=== PATIENT | female | born 1950 | race Caucasian/White ===

== ENCOUNTER 2016-11-01 10:01 | Outpatient (CLI) | payer MEDICARE, OTHER | END 2016-11-01 10:02 | disposition home or self-care (01) | DX: G47.33 Obstructive sleep apnea (adult) (pediatric) (principal) | CPT/HCPCS: 99213; G0463 ==

== ENCOUNTER 2016-11-29 09:28 | Outpatient (CLI) | payer MEDICARE, OTHER | END 2016-11-29 09:29 | disposition home or self-care (01) | DX: G47.33 Obstructive sleep apnea (adult) (pediatric) (principal) | CPT/HCPCS: 99213; G0463 ==

== ENCOUNTER 2017-03-07 09:30 | Outpatient (CLI) | payer MEDICARE, OTHER | END 2017-03-07 09:31 | disposition home or self-care (01) | LOC: SC 09:30 | PROVIDERS: ATTEND Internal Medicine Pulmonary Disease | DX: Z53.9 Procedure and treatment not carried out, unspecified reason (principal) ==

== ENCOUNTER 2017-12-23 10:34 | Outpatient (CLI) | payer MEDICARE, OTHER ==
--- NOTE | 2017-12-23 13:53 | XRAY Report ---
RIGHT KNEE: 12/23/2017 HISTORY: Pain. COMPARISON: No comparisons. FINDINGS: There is advanced patellofemoral degenerative change with joint space narrowing and spurring. Lateral tilting and subluxation of the patella. Equivocal suprapatellar effusion. Mild medial and lateral knee joint space narrowing and spurring. No fracture. IMPRESSION: MODERATELY SEVERE RIGHT KNEE DEGENERATIVE CHANGE, MOST MARKED PATELLOFEMORAL ARTICULATION. TD: 12/23/2017 13:53 [facility]
== END 2017-12-23 10:35 | disposition home or self-care (01) ==
LOC: DI.N 10:34
PROVIDERS: ATTEND Internal Medicine
DX: M17.11 Unilateral primary osteoarthritis, right knee (principal)

== ENCOUNTER 2021-06-04 08:46 | Day surgery (SDC) | payer MEDICARE, OTHER ==
[~2021-06-04 08:46] MED LIST: BRIMONIDINE 0.2% OPHTH DROPS 5 ML ONE; BSS/LIDOCAINE/EPINEPHRINE 1 ML SYRINGE ONE; CYCLOPENTOLATE 1% OPHTH DROPS 2 ML ONE; EPINEPHrine 1 MG/ML AMP ONE; KETOROLAC 0.45% OPHTH DROPS ONE; PHENYLEPHRINE 2.5% OPHTH 2 ML DROPS ONE; PROPARACAINE 0.5% OPHTH DROPS 15 ML ONE; TIMOLOL 0.5% OPHTH DROPS ONE; TRIAMCIN/MOXIFLOX OPHTHALMIC 0.6 ML VIAL IO ONE; VANCOMYCIN OPHTHALMI 8MG/0.8ML 8 MG/0.8 ML SYRINGE IO ONE
[2021-06-04] MEDS ORDERED: LACTATED RINGERS 1,000 ML IV ONE (08:59)
--- NOTE | 2021-06-04 10:19 | ANESTHESIA ---
Pre-Anesthesia VS, & Labs - Diagnosis senile posterior subcapsular polar cataract right - Procedure right cataract extraction with IOL Vital Signs: Temp Pulse Resp BP Pulse Ox 36.7 C 68 18 109/70 99 06/04/21 09:00 06/04/21 09:00 06/04/21 09:00 06/04/21 09:00 06/04/21 09:00 Height: 5 ft Weight (kg): 65.5 kg Body Mass Index: 28.2 BMI Classification: Overweight - NPO >8 hours - Is Patient ?: No Home Medications and Allergies Home Medications: Ambulatory Orders Lisinopril [Zestril] 10 mg PO DAILY 06/03/21 Omeprazole Magnesium 20 mg PO DAILY 06/03/21 oxyCODONE ER [OxyCONTIN] 10 mg PO PRN PRN 06/03/21 Lisinopril [Zestril] 10 mg PO DAILY 06/03/21 Omeprazole Magnesium 20 mg PO DAILY 06/03/21 oxyCODONE ER [OxyCONTIN] 10 mg PO PRN PRN 06/03/21 Anes History & Medical History - Anesthetic History Anesthesia Complications: reports: No previous complications - Medical History Cardiovascular: reports: None Pulmonary: reports: Sleep apnea Gastrointestinal: reports: Colon polyps Urinary: reports: None Musculoskeletal: reports: Fibromyalgia Endocrine/Autoimmune: reports: None Skin: reports: None - Surgical History Gynecologic: reports: Other Orthopedic: reports: Hip replacement, Other Exam General: Alert, Oriented x3 Dental: WNL Mouth Opening: Greater than 4 Fingerbreadths Mallampati classification: II Respiratory: Lungs clear Cardiovascular: Regular rate Plan Anesthesia Type: MAC Consent for Procedure(s) Verified and Reviewed: Yes Code Status: Attempt Resuscitation ASA classification: 2-Mild systemic disease Is this case an emergency?: No
[2021-06-04] MEDS ORDERED: MIDAZOLAM 2 MG/2 ML VIAL ONE ×2 (10:49→11:05)
[2021-06-04] MEDS ORDERED: fentaNYL 100 MCG/2 ML VIAL ONE (11:05)
[2021-06-04] MEDS ORDERED: BRIMONIDINE 0.2% OPHTH DROPS 5 ML OPTH ONE (11:30)
[2021-06-04] MEDS ORDERED: CHONDR SULF/HYALURONATE SYRINGE IO ONE (11:30)
[2021-06-04] MEDS ORDERED: EPINEPHrine 1 MG/ML AMP IR ONE (11:30)
[2021-06-04] MEDS ORDERED: BSS/LIDOCAINE/EPINEPHRINE 1 ML SYRINGE IO ONE (11:31)
[2021-06-04] MEDS ORDERED: TIMOLOL 0.5% OPHTH DROPS OPTH ONE (11:31)
[2021-06-04] MEDS ORDERED: VANCOMYCIN OPHTHALMI 8MG/0.8ML 8 MG/0.8 ML SYRINGE IO ONE (11:31)
[2021-06-04] MEDS ORDERED: PROPARACAINE 0.5% OPHTH DROPS 15 ML EACHEYE ONE (11:31)
[2021-06-04] MEDS ORDERED: TRIAMCIN/MOXIFLOX OPHTHALMIC 0.6 ML VIAL IO ONE (11:31)
[2021-06-04] MEDS ORDERED: ACETYLCHOLINE 20 MG/2 ML KIT IO ONE ×2 (11:36→11:40)
[2021-06-04 11:47] VITALS: BP 103/67
[2021-06-04] MEDS ORDERED: LACTATED RINGERS 600 ML IV ONE (11:47)
--- NOTE | 2021-06-04 11:48 | OPERATIVE REPORT ---
Operative Report - Other Other Information/Narrative: Date of Surgery: 06/04/21 Preop Dx: Visually significant cataract right eye. This was the first cataract surgery. Postop Dx: Same Procedure: Phacoemulsification with posterior chamber intraocular lens implant right eye Surgeon: Dr. Marcos Delgado Anesthesia: Monitored anesthesia care Complications: None Operative Indications: This is a 71-year-old F with progressive vision loss in the right eye due to 2+ nuclear sclerotic and 3-4+ posterior subcapsular cataract. Best corrected visual acuity was 20/125 with glare to light perception vision in the right eye. Indications for surgery were: - Overall decrease in vision - Difficulty seeing words on a computer screen - Difficulty reading - Difficulty seeing words, closed captions, or game scores on TV - Difficulty driving in low light or at night - Difficulty driving at night because of headlights from other vehicles - Difficulty with glare or bright lights in any situation - Decreased acuity with firearms The patient was consented at length concerning the risks and benefits of cataract surgery after which the patient expressed a desire to proceed with surgery. Operative Procedure: The patient was taken into OR#3 and placed under monitored anesthesia care. A surgical time-out was conducted confirming correct patient, correct procedure, and correct surgical site. The patient was given topical anesthesia and then prepped and draped in the usual sterile fashion. The eye was entered at the 6 and 3 oclock positions. Intracameral Shugarcaine was injected into the anterior chamber followed by a dispersive viscoelastic. A continuous-tear curvilinear capsulorhexis was performed. The nucleus was hyd rodissected and phacoemulsified. The cortex was evacuated using automated infusion and aspiration. A cohesive viscoelastic was injected into the capsular bag and a 23.5 diopter intraocular lens was inserted into the bag. Infusion and aspiration were used to evacuate the viscoelastic materials from the eye. The wounds were hydrated and the eye inflated to physiologic pressure using balanced salt solution. Approximately 0.25ml of a mixture of triamcinolone and moxifloxacin was injected trans-sclerally into the vitreous in the inferotemporal quadrant using a 30 gauge cannula. An additional 0.55ml of a mixture of triamcinolone, moxifloxacin, and vancomycin was injected subconjunctivally in the superior quadrant for infection and inflammation prophylaxis. Wound integrity was checked with Weck-Sophy sponges. The patient was taken from the operating room in good condition and given post-op instructions.
--- NOTE | 2021-06-04 14:58 | ANESTHESIA POST OP EVALUATION ---
Anesthesia Post Eval - Post Anesthesia Eval Vitals: Last Vital Signs Temp 36.6 C 06/04/21 11:46 Pulse 50 L 06/04/21 11:46 Resp 16 06/04/21 11:46 BP 103/67 06/04/21 11:46 Pulse Ox 99 06/04/21 11:46 CV Function Including HR & BP: Stable Pain Control: Satisfactory Nausea & Vomiting: Negative Mental Status: Baseline Respiratory Status: Airway Patent Hydration Status: Satisfactory Anesthesia Complications: None
== END 2021-06-04 08:47 | disposition home or self-care (01) ==
LOC: SDS 08:46
PROVIDERS: ATTEND Ophthalmology
DX: H25.041 Posterior subcapsular polar age-related cataract, right eye (principal); G47.33 Obstructive sleep apnea (adult) (pediatric); F41.9 Anxiety disorder, unspecified
CPT/HCPCS: 66984; A9270; J3490; J7120

== ENCOUNTER 2021-07-02 07:47 | Day surgery (SDC) | payer MEDICARE, OTHER ==
[~2021-07-02 07:47] MED LIST changes: +MIDAZOLAM 2 MG/2 ML VIAL ONE
[2021-07-02] MEDS ORDERED: LACTATED RINGERS 1,000 ML IV ONE (08:01)
--- NOTE | 2021-07-02 08:51 | ANESTHESIA ---
Pre-Anesthesia VS, & Labs - Diagnosis L senile posterior subcapsular polar cataract - Procedure L extraction cataract w/IOL Vital Signs: Temp Pulse Resp BP Pulse Ox 36.9 C 65 18 122/70 99 07/02/21 08:03 07/02/21 08:03 07/02/21 08:03 07/02/21 08:03 07/02/21 08:03 Height: 5 ft Weight (kg): 67 kg Body Mass Index: 28.8 BMI Classification: Overweight - NPO >8 hours - Is Patient ?: No - Lab Results Lab results reviewed: Yes Home Medications and Allergies Home Medications: Ambulatory Orders ALPRAZolam [Alprazolam] 1 tab PO PRN PRN 07/02/21 DULoxetine [Cymbalta] 1 cap PO DAILY 07/02/21 Lisinopril [Zestril] 10 mg PO DAILY 06/03/21 Omeprazole Magnesium 20 mg PO DAILY 06/03/21 oxyCODONE ER [OxyCONTIN] 10 mg PO PRN PRN 06/03/21 ALPRAZolam [Alprazolam] 1 tab PO PRN PRN 07/02/21 DULoxetine [Cymbalta] 1 cap PO DAILY 07/02/21 Allergies/Adverse Reactions: Allergies Allergy/AdvReac Type Severity Reaction Status Date / Time hydromorphone AdvReac Hallucinati Verified 07/02/21 08:27 ons Anes History & Medical History - Medical History Cardiovascular: reports: None Pulmonary: reports: Sleep apnea Gastrointestinal: reports: Colon polyps Urinary: reports: None Musculoskeletal: reports: Fibromyalgia Endocrine/Autoimmune: reports: None Skin: reports: None - Surgical History Gynecologic: reports: Other Orthopedic: reports: Hip replacement, Other Exam General: Alert, Oriented x3, Cooperative Dental: WNL Mouth Openin Fingerbreadth Neck Mobility: Normal Mallampati classification: III Thyromental Distance: 4-6 cm Respiratory: Lungs clear, Normal breath sounds, No respiratory distress Cardiovascular: Regular rate Neurological: Normal speech Mental/Cognitive Status: Alert/Oriented X3, Normal for patient Cognitive Status: Within normal limits Plan Anesthesia Type: MAC Consent for Procedure(s) Verified and Reviewed: Yes Code Status: Attempt Resuscitation ASA classification: 2-Mild systemic disease Is this case an emergency?: No
[2021-07-02] MEDS ORDERED: CHONDR SULF/HYALURONATE SYRINGE IO ONE (09:14)
[2021-07-02] MEDS ORDERED: TIMOLOL 0.5% OPHTH DROPS OPTH ONE (09:14)
[2021-07-02] MEDS ORDERED: BRIMONIDINE 0.2% OPHTH DROPS 5 ML OPTH ONE (09:14)
[2021-07-02] MEDS ORDERED: EPINEPHrine 1 MG/ML AMP IR ONE (09:14)
[2021-07-02] MEDS ORDERED: TRIAMCIN/MOXIFLOX OPHTHALMIC 0.6 ML VIAL IO ONE (09:15)
[2021-07-02] MEDS ORDERED: BSS/LIDOCAINE/EPINEPHRINE 1 ML SYRINGE IO ONE (09:15)
[2021-07-02] MEDS ORDERED: PROPARACAINE 0.5% OPHTH DROPS 15 ML EACHEYE ONE (09:15)
[2021-07-02] MEDS ORDERED: VANCOMYCIN OPHTHALMI 8MG/0.8ML 8 MG/0.8 ML SYRINGE IO ONE (09:16)
--- NOTE | 2021-07-02 09:27 | OPERATIVE REPORT ---
Operative Report - Other Other Information/Narrative: Date of Surgery: 07/02/21 Preop Dx: Visually significant cataract left eye. Cataract surgery was performed in the right eye on [id number]. Postop Dx: Same Procedure: Phacoemulsification with posterior chamber intraocular lens implant left eye Surgeon: Dr. Marcos Delgado Anesthesia: Monitored anesthesia care Complications: None Operative Indications: This is a 71-year-old F with progressive vision loss in the left eye due to 2+ nuclear sclerotic and 1+ posterior subcapsular cataract. Best corrected visual acuity was 20/30 with glare to 20/100 vision in the left eye. Indications for surgery were: - Overall decrease in vision - Difficulty seeing words on a computer screen - Difficulty reading - Difficulty seeing words, closed captions, or game scores on TV - Difficulty seeing street signs - Difficulty driving in low light or at night - Difficulty driving at night because of headlights from other vehicles - Difficulty with glare or bright lights in any situation - Decreased acuity with firearms The patient was consented at length concerning the risks and benefits of cataract surgery after which the patient expressed a desire to proceed with surgery. Operative Procedure: The patient was taken into OR#3 and placed under monitored anesthesia care. A surgical time-out was conducted confirming correct patient, correct procedure, and correct surgical site. The patient was given topical anesthesia and then prepped and draped in the usual sterile fashion. The eye was entered at the 6 and 3 oclock positions. Intracameral Shugarcaine was injected into the anterior chamber followed by a dispersive viscoelastic. A continuous-tear curvilinear capsulorhexis was performed. The nucleus was hydrodissected and phacoemulsified. The cortex was evacuated using automated infusion and aspiration. A cohesive viscoelastic was injected into the capsular bag and a 23.0 diopter intraocular lens was inserted into the bag. Infusion and aspiration were used to evacuate the viscoelastic materials from the eye. The wounds were hydrated and the eye inflated to physiologic pressure using balanced salt solution. Approximately 0.25ml of a mixture of triamcinolone and moxifloxacin was injected trans-sclerally into the vitreous in the infe rotemporal quadrant using a 30 gauge cannula. An additional 0.55ml of a mixture of triamcinolone, moxifloxacin, and vancomycin was injected subconjunctivally in the superior quadrant for infection and inflammation prophylaxis. Wound integrity was checked with Weck-Sophy sponges. The patient was taken from the operating room in good condition and given post-op instructions.
[2021-07-02] MEDS ORDERED: LACTATED RINGERS 800 ML IV ONE (09:31)
--- NOTE | 2021-07-02 09:59 | ANESTHESIA POST OP EVALUATION ---
Anesthesia Post Eval - Post Anesthesia Eval Vitals: Last Vital Signs Temp 36.5 C 07/02/21 09:25 Pulse 63 07/02/21 09:25 Resp 18 07/02/21 09:25 BP 113/66 07/02/21 09:25 Pulse Ox 100 07/02/21 09:25 CV Function Including HR & BP: Stable Pain Control: Satisfactory Nausea & Vomiting: Negative Mental Status: Baseline Respiratory Status: Airway Patent Hydration Status: Satisfactory Anesthesia Complications: None
[2021-07-02 10:04] VITALS: BP 111/64
== END 2021-07-02 07:48 | disposition home or self-care (01) ==
LOC: SDS 07:47
PROVIDERS: ATTEND Ophthalmology
DX: H25.042 Posterior subcapsular polar age-related cataract, left eye (principal); I10 Essential (primary) hypertension; K21.9 Gastro-esophageal reflux disease without esophagitis; F41.9 Anxiety disorder, unspecified; F32.9 Major depressive disorder, single episode, unspecified; Z96.1 Presence of intraocular lens; G47.30 Sleep apnea, unspecified; Z87.891 Personal history of nicotine dependence; Z79.82 Long term (current) use of aspirin; Z79.899 Other long term (current) drug therapy
CPT/HCPCS: 66984; A9270; J3490; J7120; V2787

== ENCOUNTER 2022-06-17 08:48 | Outpatient (CLI) | payer MEDICARE, OTHER ==
--- NOTE | 2022-06-18 11:30 | Mammography Report ---
BILATERAL DIGITAL SCREENING MAMMOGRAM 3D/2D: 06/17/2022 CLINICAL: Routine screening. Personal history of left breast cancer. Family history of breast cancer. Comparison is made to exams dated: 06/10/2021 ultrasound, 06/10/2021 mammogram, 09/04/2020 mammogram, 05/20/2020 breast MRI - [facility], 08/23/2019 mammogram, and 08/22/2018 mammogram - [facility]. There are scattered areas of fibroglandular density in both breasts (category b / 25%-50% glandular t issue). There is a benign calcification in the left breast. There also are benign post operative findings in both breasts. No significant masses, calcifications, or other findings are seen in either breast. There has been no significant interval change. IMPRESSION: BENIGN There is no mammographic evidence of malignancy. A 1 year screening mammogram is recommended. This exam was interpreted at Station ID: [id number]. NOTE: For mammograms, a report in lay terms will be sent to the patient. Approximately 15% of breast malignancies will not be visualized mammographically. In the management of a palpable breast mass, a negative mammogram must not discourage biopsy of a clinically suspicious lesion. Electronically Signed By: Monica [email or web address]/asif:06/17/2022 14:29:56 ACR BI-RADS Category 2: Benign Finding(s) 3342F PARENCHYMAL PATTERN: (A) - The breast(s) demonstrate(s) scattered fibroglandular densities. BI-RADS CATEGORY: (2) - 2 RECOMMENDATION: (ANNUAL) - Recommend routine annual screening mammography. [id number] 1 year screening LATERALITY: (B)
== END 2022-06-17 08:49 | disposition home or self-care (01) ==
LOC: DI.N 08:48
PROVIDERS: ATTEND Internal Medicine
DX: Z12.31 Encounter for screening mammogram for malignant neoplasm of breast (principal); Z85.3 Personal history of malignant neoplasm of breast; Z80.3 Family history of malignant neoplasm of breast

== ENCOUNTER 2022-08-18 09:45 | Outpatient (CLI) | payer MEDICARE, OTHER ==
--- NOTE | 2022-08-18 10:53 | XRAY Report ---
PROCEDURE: Elbow 2 View LT INDICATIONS: PAIN IN LEFT ELBOW TECHNIQUE: 2 views of the elbow were acquired. COMPARISON: None FINDINGS: Bones: No fractures or dislocations. Degenerative changes are mild. No suspicious bony lesions. Soft tissues: No elbow joint effusion. No suspicious soft tissue calcifications. IMPRESSION: 1. No acute abnormality of the left elbow. 2. Mild degenerative changes. Reviewed by: David Keating on 08/18/2022 10:51 AM [facility] Approved by: David Keating on 08/18/2022 10:51 AM [facility] Station ID: [id number]
== END 2022-08-18 09:46 | disposition home or self-care (01) ==
LOC: DI 09:45
PROVIDERS: ATTEND Student in an Organized Health Care Education/Training Program
DX: M19.022 Primary osteoarthritis, left elbow (principal)

== ENCOUNTER 2024-01-18 10:43 | Outpatient (CLI) | payer MEDICARE, OTHER ==
--- NOTE | 2024-01-19 11:00 | Ultrasound Report ---
LIMITED ULTRASOUND OF LEFT BREAST: 01/18/2024 CLINICAL: Palpable left breast lump and focal pain. Comparison is made to exams dated: 01/18/2024 mammogram, 06/17/2022 mammogram - [facility], 06/10/2021 mammogram, 09/04/2020 mammogram, 05/20/2020 breast MRI - [facility], and 08/23/2019 mammogram - [facility]. Color flow ultrasound of the left breast retroareolar was performed on the areas of interest. Tobin scale images of the real-time examination were reviewed. There is a densly calcified post-surgical scar in the left breast central to the nipple anterior dept h. This correlates as palpated and with mammography findings. There are related calcifications. No suspicous mass seen by ultrasound. IMPRESSION: BENIGN There is no sonographic evidence of malignancy. The calcified post-surgical scar in the left breast is benign. Return to annual mammogram screening schedule is recommended. This exam was interpreted at Station ID: [id number]. Electronically Signed By: Gali guerrero/:01/18/2024 12:30:20 Ultrasound BI-RADS: 2 Benign BI-RADS CATEGORY: (2) - 2 Mammogram [id number] return to screening LATERALITY: (B)
--- NOTE | 2024-01-19 11:00 | Mammography Report ---
BILATERAL DIGITAL DIAGNOSTIC MAMMOGRAM 3D/2D: 01/18/2024 CLINICAL: Palpable left breast lump. Due for bilateral exam. Comparison is made to exams dated: 06/17/2022 mammogram - [facility], 06/10/2021 [facility], and 09/04/2020 mammogram - [facility]. There are scattered areas of fibroglandular density in both breasts (category b / 25%-50% glandular t issue). There are benign regional dystrophic calcifications in the left breast at 6 o'clock middle depth. Th ere is a post-surgical scar associated with the calcifications. No other significant masses, calcifications, or other findings are seen in either breast. IMPRESSION: INCOMPLETE: NEEDS ADDITIONAL IMAGING EVALUATION There are no mammographic abnormalities seen in the left breast to correspond with the palpable abnor mality however, targeted ultrasound of the left breast is recommended and will be performed immediat angelita following this exam. This exam was interpreted at Station ID: [id number]. NOTE: For mammograms, a report in lay terms will be sent to the patient. Approximately 15% of breast malignancies will not be visualized mammographically. In the management of a palpable breast mass, a negative mammogram must not discourage biopsy of a clinically suspicious lesion. Electronically Signed By: Gali Baxter M.D. lk/:01/18/2024 11:56:45 ACR BI-RADS Category 0: Incomplete 3340F PARENCHYMAL PATTERN: (A) - The breast(s) demonstrate(s) scattered fibroglandular densities. BI-RADS CATEGORY: (0) - 0 Ultrasound [id number] Immediate follow-up LATERALITY: (B)
== END 2024-01-18 10:44 | disposition home or self-care (01) ==
LOC: DI 10:43
PROVIDERS: ATTEND Internal Medicine
DX: N63.21 Unspecified lump in the left breast, upper outer quadrant (principal); R92.323 Mammographic fibroglandular density, bilateral breasts